=== PATIENT | female | born 1930 | race Caucasian/White ===

== ENCOUNTER 2018-08-04 13:04 | Emergency (ER) | payer OTHER ==
[~2018-08-04] VITALS: Ht 167.6 cm; Wt 59.0 kg
[~2018-08-04 13:04] MED LIST: ARICEPT5 MG; ATIVAN0.5 M1; COZAAR50 MG PO; NAMENDA1 EACH; OXAZEPAM15 MG PO; SEROQUEL25 MG PO
[2018-08-04] MEDS ORDERED: ASPIR 8181 MG PO (14:06)
[2018-08-04] MEDS ORDERED: CALCIUM500 M1 PO (14:06)
[2018-08-04] MEDS ORDERED: PAROXETINE HCL20 MG PO (14:06)
[2018-08-04] MEDS ORDERED: ATIVAN0.5 M1 PO (14:06)
[2018-08-04] MEDS ORDERED: RESTORIL15 M1 PO (14:07)
[2018-08-04] MEDS ORDERED: ARICEPT10 MG PO (14:07)
[2018-08-04] MEDS ORDERED: AMLODIPINE BESYL5 MG PO (14:07)
[2018-08-04] MEDS ORDERED: COZAAR100 MG PO (14:07)
== END 2018-08-04 14:59 | disposition home or self-care (01) ==
LOC: ER 13:04
DX: S00.83XA Contusion of other part of head, initial encounter (principal); S80.02XA Contusion of left knee, initial encounter; W18.39XA Other fall on same level, initial encounter; Y93.89 Activity, other specified; Y92.098 Other place in other non-institutional residence as the place of occurrence of the external cause; Y99.8 Other external cause status

== ENCOUNTER 2019-01-16 20:13 | Inpatient (IN) | payer OTHER ==
[~2019-01-16] VITALS: Ht 172.7 cm; Wt 53.5 kg
[~2019-01-16 20:13] MED LIST changes: +AMLODIPINE BESYL5 MG PO; +ARICEPT10 MG PO; +ASPIR 8181 MG PO; +ATIVAN0.5 M1 PO; +CALCIUM500 M1 PO; +COZAAR100 MG PO; +PAROXETINE HCL20 MG PO; +RESTORIL15 M1 PO
[2019-01-24] MEDS ORDERED: DOXYCYCLINE HY100 M2 PO (07:35)
== END 2019-01-24 14:04 | DRG 570 ==
LOC: ER 20:13 → SURH 01-17 10:53 → SEC-K 01-17 10:53 → MEDJ 01-17 12:22 → SURH 01-17 13:13
PROVIDERS: ADMIT Internal Medicine
PROC: 0JB70ZZ Excision of Back Subcutaneous Tissue and Fascia, Open Approach (ICD-10-PCS; principal; 2019-01-17)
PROC: 8E0ZXY6 Isolation (ICD-10-PCS; 2019-01-17)
DX: L03.317 Cellulitis of buttock (principal); A41.02 Sepsis due to Methicillin resistant Staphylococcus aureus; B37.89 Other sites of candidiasis; B95.61 Methicillin susceptible Staphylococcus aureus infection as the cause of diseases classified elsewhere; I10 Essential (primary) hypertension; R31.0 Gross hematuria; G30.0 Alzheimer's disease with early onset; F02.80 Dementia in other diseases classified elsewhere, unspecified severity, without behavioral disturbance, psychotic disturbance, mood disturbance, and anxiety

== ENCOUNTER 2019-05-29 21:20 | Emergency (ER) | payer OTHER ==
[~2019-05-29] VITALS: Ht 152.4 cm; Wt 45.4 kg
[~2019-05-29 21:20] MED LIST changes: +DOXYCYCLINE HY100 M2 PO
[2019-05-30] MEDS ORDERED: PROMETHAZINE-D473 M1 PO (05:57)
== END 2019-05-30 06:33 ==
LOC: ER 21:20
DX: E86.0 Dehydration (principal)